=== PATIENT | female | born 1990 | race African-American/Black ===

== ENCOUNTER 2025-11-02 01:14 | Emergency (ER) | payer MEDICAID ==
[~2025-11-02] VITALS: Ht 172.7 cm; Wt 145.0 kg
[2025-11-02 01:20] VITALS: O2SAT 98
[2025-11-02 02:22] LABS: BASOPHILS % 0.6 % (0.0-2.0); EOSINOPHILS % 1.4 % (0.0-5.0); HEMATOCRIT. 36.0 % (36.0-48.0); HEMOGLOBIN. 11.2 g/dL (12.0-16.0); LYMPHOCYTES % 26.0 % (20.0-50.0); MEAN PLATELET VOLUME 9.5 fl (7.4-10.4); MONOCYTES % 10.7 % (2.0-8.0); NEUTROPHILS % 61.3 % (40.0-76.0); PLATELET 242 x1000/uL (130-400); RED BLOOD CELL COUNT 5.06 mill/uL (4.2-5.4); RED CELL DISTRIBUTION WIDTH 18.7 % (11.6-14.6)
[2025-11-02 02:25] LABS: CREATININE 0.8 mg/dL (0.6-1.0); UREA NITROGEN BLOOD 10 mg/dL (9-23)
[2025-11-02 02:26] LABS: TROPONIN I HIGH SENSITIVITY < 4 ng/L (3.0-34)
[2025-11-02] MEDS: IBUPROFEN 800MG TABLET PO ONE (03:25)
[2025-11-02 04:46] LABS: HCG SCREEN NEGATIVE
[2025-11-02] MEDS ORDERED: AMLO10TA80 MT (05:54)
[2025-11-02] MEDS ORDERED: ALBU18HF2 IH (05:54)
[2025-11-02] MEDS ORDERED: IBUP-1455 MT (05:54)
[2025-11-02] MEDS ORDERED: HYDR25TA MT (05:54)
[2025-11-02 06:04] VITALS: BP 151/101; PULSE 74; RESP 16; TEMP 36.6; O2SAT 98
== END 2025-11-02 06:04 | disposition home or self-care (01) ==
LOC: ER 01:14
DX: R07.89 Other chest pain (principal); R07.81 Pleurodynia; Z76.0 Encounter for issue of repeat prescription; J45.909 Unspecified asthma, uncomplicated; R06.02 Shortness of breath; I10 Essential (primary) hypertension; Z79.899 Other long term (current) drug therapy
CPT/HCPCS: 36415; 71045; 80048; 83880; 84484; 84703; 85025; 85651; 93005; 99285